=== PATIENT | male | born 1950 | race Two or more races ===

== ENCOUNTER → 2020-09-11 14:51 | Outpatient (CLI) | payer OTHER | END | disposition home or self-care (01) | LOC: LAB 14:51 | PROVIDERS: ATTEND Urology | DX: R97.20 Elevated prostate specific antigen [PSA] (principal) ==

== ENCOUNTER 2020-10-04 07:25 | Outpatient (CLI) | payer OTHER | END 2020-10-04 07:28 | disposition home or self-care (01) | LOC: SONOGRAMA 07:25 | PROVIDERS: ATTEND Urology | DX: D29.1 Benign neoplasm of prostate (principal); R97.20 Elevated prostate specific antigen [PSA] ==

== ENCOUNTER 2021-03-28 16:22 | Outpatient (CLI) | payer OTHER | END 2021-03-28 16:26 | disposition home or self-care (01) | LOC: LAB 16:22 | PROVIDERS: ATTEND Urology | DX: R97.20 Elevated prostate specific antigen [PSA] (principal) ==